=== PATIENT | male | born 1945 | race Caucasian/White ===

== ENCOUNTER 2017-01-28 10:19 | Outpatient (CLI) | payer MEDICARE ==
[2017-01-28 19:34] LABS: BASOPHILS # (AUTO) 0.1 10^3/uL (0.0-0.1); EOSINOPHILS # (AUTO) 0.2 10^3/uL (0.0-0.7); EOSINOPHILS % (AUTO) 3.7 %; HGB - HEMOGLOBIN 15.5 g/dL (14.0-18.0); LYMPHOCYTES # (AUTO) 1.2 10^3/uL (1.5-3.5); LYMPHOCYTES % (AUTO) 19.1 %; MEAN CORPUSCULAR HEMOGLOBIN 32.6 pg (27.0-31.0); MEAN CORPUSCULAR HGB CONC 33.6 g/dL (32.0-36.0); MEAN PLATELET VOLUME 11.7 fL (7.4-11.4); MONOCYTES # (AUTO) 0.5 10^3/uL (0.0-1.0); MONOCYTES % (AUTO) 8.7 %; NEUTROPHILS # (AUTO) 4.2 10^3/uL (1.5-6.6); NEUTROPHILS % (AUTO) 67.5 %; NUCLEATED RED BLOOD CELLS AUTO 0.1 /100WBC; RED BLOOD COUNT 4.74 10^6/uL (4.70-6.10); RED CELL DISTRIBUTION WIDTH 13.3 % (12.0-15.0); UNCORRECTED WHITE BLOOD COUNT 6.2 x10^3/uL; WHITE BLOOD COUNT 6.2 x10^3/uL (4.8-10.8)
[2017-01-28 19:39] LABS: ALBUMIN/GLOBULIN RATIO 1.5 (1.0-2.2); BILIRUBIN,TOTAL 1.1 mg/dL (0.2-1.0); CALCIUM 9.1 mg/dL (8.5-10.3); CREATININE 0.9 mg/dL (0.6-1.2); POTASSIUM 4.1 mmol/L (3.5-5.0)
[2017-01-28 20:08] LABS: H. PYLORI IGG ANTIBODY Negative (Negative); HPYLORI NEG QC Negative (Negative); HPYLORI POS QC POSITIVE (Positive)
== END 2017-01-28 10:20 | disposition home or self-care (01) ==
LOC: LAB.F 10:19
PROVIDERS: ATTEND Physician Assistant Medical
DX: R10.9 Unspecified abdominal pain (principal)
CPT/HCPCS: 36415; 80053; 82150; 83690; 85025; 87339

== ENCOUNTER 2017-01-29 20:19 | Outpatient (CLI) | payer MEDICARE | END 2017-01-29 20:20 | disposition home or self-care (01) | LOC: LAB.R 20:19 | PROVIDERS: ATTEND Family Medicine | DX: R10.9 Unspecified abdominal pain (principal) | CPT/HCPCS: 87493 ==

== ENCOUNTER 2018-03-01 10:39 | Outpatient (CLI) | payer MEDICARE ==
[2018-03-01 19:59] LABS: BASOPHILS # (AUTO) 0.1 10^3/uL (0.0-0.1); BASOPHILS % (AUTO) 1.2 %; EOSINOPHILS # (AUTO) 0.4 10^3/uL (0.0-0.7); EOSINOPHILS % (AUTO) 5.8 %; HGB - HEMOGLOBIN 16.6 g/dL (14.0-18.0); LYMPHOCYTES # (AUTO) 1.4 10^3/uL (1.5-3.5); LYMPHOCYTES % (AUTO) 22.3 %; MEAN CORPUSCULAR HEMOGLOBIN 33.1 pg (27.0-31.0); MEAN CORPUSCULAR HGB CONC 34.4 g/dL (32.0-36.0); MEAN CORPUSCULAR VOLUME 96.4 fL (80.0-94.0); MEAN PLATELET VOLUME 11.5 fL (7.4-11.4); MONOCYTES # (AUTO) 0.5 10^3/uL (0.0-1.0); MONOCYTES % (AUTO) 8.8 %; NEUTROPHILS # (AUTO) 3.9 10^3/uL (1.5-6.6); NEUTROPHILS % (AUTO) 61.9 %; PLT - PLATELET COUNT 168 10^3/uL (130-450); RED BLOOD COUNT 5.02 10^6/uL (4.70-6.10); RED CELL DISTRIBUTION WIDTH 13.5 % (12.0-15.0); WHITE BLOOD COUNT 6.2 x10^3/uL (4.8-10.8)
[2018-03-01 20:18] LABS: ALBUMIN/GLOBULIN RATIO 1.4 (1.0-2.2); ALKALINE PHOSPHATASE 48 IU/L (42-121); ALT ALANINE AMINOTRANSFERASE 25 IU/L (10-60); AST ASPARTATE AMINOTRANSFERASE 25 IU/L (10-42); BUN - BLOOD UREA NITROGEN 15 mg/dL (6-20); CARBON DIOXIDE - CO2 28 mmol/L (21-32); CHLORIDE 107 mmol/L (101-111); CHOL/HDL RATIO 3.7 (<5.0); CHOLESTEROL 196 mg/dL; CREATININE 0.7 mg/dL (0.6-1.2); GFR - MDRD 111 (>89); GLUCOSE 94 mg/dL (70-100); HDL CHOLESTEROL 53 mg/dL; LDL CHOLESTEROL,CALCULATED 129 mg/dL; LDL/HDL RATIO 2.4 (<3.6); SODIUM 142 mmol/L (135-145); TOTAL PROTEIN 6.8 g/dL (6.7-8.2); VLDL CHOLESTEROL 14 mg/dL
== END 2018-03-01 10:40 | disposition home or self-care (01) ==
LOC: LAB.F 10:39
PROVIDERS: ATTEND Family Medicine
DX: Z00.00 Encounter for general adult medical examination without abnormal findings (principal); Z12.5 Encounter for screening for malignant neoplasm of prostate; I10 Essential (primary) hypertension; E78.5 Hyperlipidemia, unspecified
CPT/HCPCS: 36415; 80053; 80061; 84443; 85025; G0103; 83721; 84153

== ENCOUNTER 2022-05-26 08:00 | Outpatient (CLI) | payer MEDICARE | END 2022-05-26 23:59 | disposition home or self-care (01) | LOC: LAB.N 08:00 | PROVIDERS: ATTEND Registered Nurse | DX: R93.0 Abnormal findings on diagnostic imaging of skull and head, not elsewhere classified (principal); R10.9 Unspecified abdominal pain; R19.5 Other fecal abnormalities | CPT/HCPCS: 87177 ==

== ENCOUNTER 2023-01-27 00:37 | Emergency (ER) | payer MEDICARE ==
[2023-01-27] MEDS ORDERED: diphenhydrAMINE INJ 50 MG/ML VIAL IVP STA (00:46)
[2023-01-27] MEDS ORDERED: predniSONE 20 MG TABLET PO STA (00:46)
[2023-01-27] MEDS ORDERED: FAMOTIDINE 20 MG/2 ML VIAL IVP STA (00:46)
[2023-01-27] MEDS ORDERED: EPINEPHrine 1 MG/ML AMP IM STA (00:46)
[2023-01-27] MEDS ORDERED: SODIUM CHLORIDE 0.9% 1,000 ML IV STA (00:47)
--- NOTE | 2023-01-27 00:50 | ED Physician Documentation ---
History of Present Illness - Stated complaint Stated Complaint: ALLERGIC REACTION - History obtained from History obtained from: Patient - Additonal information Additional information: Patient is a 77-year-old male presenting for evaluation of allergic reaction to a bee sting. Patient states he stepped on a bee around 11 PM. Shortly thereafter he had discomfort to his foot and has since developed tightness in his chest as well as a diffuse you to cardial rash. Denies a history of anaphylaxis has never required IM epinephrine before. Reports he feels like his breathing is okay but he does feel some tightness. Review of Systems Constitutional: denies: Fever Cardiac: denies: Chest pain / pressure Respiratory: denies: Dyspnea GI: denies: Abdominal Pain Skin: reports: Rash Neurologic: denies: Headache PD PAST MEDICAL HISTORY - Present Medications Home Medications: Ambulatory Orders Medication Instructions Recorded Confirmed EPINEPHrine [Epinephrine] 0.3 mg IJ ONCE PRN #2 each 01/27/23 predniSONE [Deltasone] 60 mg PO DAILY 4 Days #12 tablet 01/27/23 - Allergies Allergies/Adverse Reactions: Allergies Allergy/AdvReac Type Severity Reaction Status Date / Time No Known Drug Allergies Allergy Verified 01/27/23 00:57 PD ED PE NORMAL - General General: Alert and oriented X 3, No acute distress, Well developed/nourished - HEENT HEENT: Atraumatic, Moist mucous membranes, Pharynx benign, Other (No visible oral swelling) - Neck Neck: Supple, no meningeal sign - Cardiac Cardiac: RRR, No murmur - Respiratory Respiratory: No respiratory distress, Other (Mild expiratory wheeze) - Abdomen Abdomen: Soft, Non tender - Derm Derm: Other (Diffuse Urticaria) - Extremities Extremities: No edema - Neuro Neuro: Normal speech Results - Vitals Vitals: Vital Signs - 24 hr 01/27/23 01/27/23 00:48 01:30 Temperature 98.2 C H Heart Rate 72 55 L Respiratory 26 H 20 Rate Blood Pressure 115/92 H 153/93 H O2 Saturation 99 96 Oxygen O2 Source Room air PD Medical Decision Making - ED course Complexity details: re-evaluated patient, d/w patient, d/w family ED course: Patient is a 77-year-old male presenting for evaluation of a rash and allergic reaction after bee sting. Patient has a diffuse rash, mild wheezing, reports feeling some tightness in his throat. No signs of visible swelling in the airway. Vital signs are stable. Patient was given prednisone, Benadryl, IV fluids and IM epinephrine for anaphylactic reaction. He was observed for a period of 4 hours with no rebound and did not require repeated doses of epinephrine. Patient to be continued on prednisone for few days. He was also given a prescription for an EpiPen. He is counseled on indications for use of t he EpiPen 0205 - Doing significantly better. Rash has resolved. No longer with any breathing issues. Understands the need for continued observation after IM epi. 0447 - Still doing well. Rash resolved. Normal respirations and clear lung sounds. Departure - Departure Disposition: Home, Self Care Clinical Impression: Anaphylactic reaction to bee sting Condition: Stable Instructions: ED Bite Sting Insect Gen Allergic React, ED Anaphylaxis General Follow-Up: Sarah Beth Riggs ARNP [Primary Care Provider] - Prescriptions: predniSONE [Deltasone] 60 mg PO DAILY 4 Days #12 tablet EPINEPHrine [Epinephrine] 0.3 mg IJ ONCE PRN #2 each PRN Reason: Allergy Symptoms Comments: You were treated for a severe allergic reaction to a bee sting called anaphylaxis. We gave you several medications including a steroid and also a shot of epinephrine. I am sending prescriptions for the steroid medication as well as an EpiPen to [facility] in [place]. I would recommend follow-up with your primary care provider. Please complete the course of prednisone and use the EpiPen if needed. Return to the ER or call 911 if you develop any worsening symptoms such as difficulty breathing, throat tightness, swelling or any new concerns.
[2023-01-27 01:51] VITALS: BP 153/93; O2SAT 96
== END 2023-01-27 05:02 | disposition home or self-care (01) ==
LOC: ED 00:37
DX: T63.441A Toxic effect of venom of bees, accidental (unintentional), initial encounter (principal)
CPT/HCPCS: 36415; 96372; 96374; 99283; 99284; J1200; J7512

== ENCOUNTER 2023-03-16 11:36 | Outpatient (CLI) | payer MEDICARE ==
[2023-03-16 15:31] LABS: BASOPHILS # (AUTO) 0.1 10^3/uL (0.0-0.1); EOSINOPHILS # (AUTO) 0.5 10^3/uL (0.0-0.7); EOSINOPHILS % (AUTO) 7.7 %; HCT - HEMATOCRIT 44.3 % (42.0-52.0); HGB - HEMOGLOBIN 15.4 g/dL (14.0-18.0); LYMPHOCYTES # (AUTO) 1.2 10^3/uL (1.5-3.5); LYMPHOCYTES % (AUTO) 19.8 %; MEAN CORPUSCULAR HGB CONC 34.8 g/dL (32.0-36.0); MEAN CORPUSCULAR VOLUME 91.9 fL (80.0-94.0); MEAN PLATELET VOLUME 11.6 fL (7.4-11.4); MONOCYTES # (AUTO) 0.7 10^3/uL (0.0-1.0); MONOCYTES % (AUTO) 12.4 %; NEUTROPHILS # (AUTO) 3.4 10^3/uL (1.5-6.6); NEUTROPHILS % (AUTO) 58.1 %; PLT - PLATELET COUNT 196 10^3/uL (130-450); RED BLOOD COUNT 4.82 10^6/uL (4.70-6.10); RED CELL DISTRIBUTION WIDTH 12.8 % (12.0-15.0); WHITE BLOOD COUNT 5.9 x10^3/uL (4.8-10.8)
[2023-03-16 15:44] LABS: ALBUMIN 4.1 g/dL (3.2-5.5); ALBUMIN/GLOBULIN RATIO 1.5 (1.0-2.2); ALKALINE PHOSPHATASE 60 IU/L (42-121); ALT ALANINE AMINOTRANSFERASE 22 IU/L (10-60); AST ASPARTATE AMINOTRANSFERASE 24 IU/L (10-42); BUN - BLOOD UREA NITROGEN 11 mg/dL (6-20); CALCIUM 9.4 mg/dL (8.5-10.3); CARBON DIOXIDE - CO2 27 mmol/L (21-32); CHLORIDE 107 mmol/L (101-111); CHOL/HDL RATIO 4.1 (<5.0); CHOLESTEROL 202 mg/dL; CREATININE 0.8 mg/dL (0.6-1.3); GFR - MDRD 94 (>89); GLUCOSE 92 mg/dL (74-104); HDL CHOLESTEROL 49 mg/dL; LDL CHOLESTEROL,CALCULATED 134 mg/dL; LDL/HDL RATIO 2.7 (<3.6); POTASSIUM 4.1 mmol/L (3.5-4.5); SODIUM 141 mmol/L (135-145); TOTAL PROTEIN 6.9 g/dL (6.4-8.9); TRIGLYCERIDES 93 mg/dL (48-352); VLDL CHOLESTEROL 19 mg/dL
[2023-03-16 15:59] LABS: THYROID STIMULATING HORMONE 1.68 uIU/mL (0.34-5.60)
== END 2023-03-16 11:37 | disposition home or self-care (01) ==
LOC: LAB.S 11:36
PROVIDERS: ATTEND Registered Nurse
DX: Z13.228 Encounter for screening for other metabolic disorders (principal); Z13.220 Encounter for screening for lipoid disorders; Z13.29 Encounter for screening for other suspected endocrine disorder; Z13.0 Encounter for screening for diseases of the blood and blood-forming organs and certain disorders involving the immune mechanism
CPT/HCPCS: 36415; 80053; 80061; 83721; 84443; 85025

== ENCOUNTER 2023-09-20 16:55 | Outpatient (CLI) | payer MEDICARE | END 2023-09-20 23:59 | disposition critical access hospital (66) | LOC: EMS 16:55 | DX: I45.2 Bifascicular block (principal); R00.2 Palpitations; H53.8 Other visual disturbances | CPT/HCPCS: A0425; A0427 ==

== ENCOUNTER 2023-09-20 17:37 | Emergency (ER) | payer MEDICARE ==
--- NOTE | 2023-09-20 18:00 | ED Physician Documentation ---
PD HPI CHEST PAIN - Stated complaint Stated Complaint: PALPATATIONS - History obtained from History obtained from: Patient - Additional information Additional information: 78-year-old gentleman with history of hypertension presents for what he describes as "a heart event." For a long time now he has had brief episodes where he will get a shocklike sensation starting in his chest and then going throughout the body. It would last only an incident. He has never had any workup for it. Is been going on for several years though. Today he had that sensation twice and the thing that was different than normal was that his vision is better after the incident than it was before. No chest pain. There is never been any chest pain. No trouble breathing. PD PAST MEDICAL HISTORY - Present Medications Home Medications: Ambulatory Orders Medication Instructions Recorded Confirmed EPINEPHrine [Epinephrine] 0.3 mg IJ ONCE PRN #2 each 01/27/23 09/20/23 clonazePAM [Clonazepam] 0.5 mg PO TID PRN 09/20/23 09/20/23 - Allergies Allergies/Adverse Reactions: Allergies Allergy/AdvReac Type Severity Reaction Status Date / Time No Known Drug Allergies Allergy Verified 09/20/23 18:02 PD ED PE NORMAL - Vitals Vital signs reviewed: Yes - General General: Alert and oriented X 3, No acute distress - HEENT HEENT: PERRL, EOMI - Cardiac Cardiac: RRR, No murmur - Respiratory Respiratory: No respiratory distress, Clear bilaterally - Abdomen Abdomen: Non tender - Extremities Extremities: No edema, No calf tenderness / cord - Neuro Neuro: Alert and oriented X 3, Normal speech Results - Vitals Vitals: Vital Signs - 24 hr 09/20/23 09/20/23 09/20/23 17:55 18:06 19:28 Temperature 37.2 C Heart Rate 78 64 Respiratory 16 15 Rate Blood Pressure 169/84 H 171/90 H Blood Pressure 164/84 H [Left] O2 Saturation 100 97 Oxygen O2 Source Room air - EKG (time done) 1800 EKG releavant findings:: EKG personally interpreted by author of this note. Relevant findings are: Rate: Rate (enter#) (67) Rhythm: NSR [place]: Normal Intervals: RBBB QRS: Normal Ischemia: Normal ST segments - Labs Labs: Laboratory Tests 09/20/23 09/20/23 09/20/23 18:03 18:03 18:03 WBC 8.6 RBC 4.57 L Hgb 14.9 Hct 42.7 MCV 93.4 MCH 32.6 H MCHC 34.9 RDW 12.3 Plt Count 204 MPV 10.2 Neut # (Auto) 6.1 Lymph # (Auto) 1.4 L [place] # (Auto) 0.8 Eos # (Auto) 0.2 Baso # (Auto) 0.0 Absolute Nucleated RBC 0.00 Nucleated RBC % 0.0 Sodium 139 Potassium 3.7 Chloride 102 Carbon Dioxide 32 Anion Gap 5.0 L BUN 20 Creatinine 1.1 Estimated GFR (MDRD) 65 L Glucose 94 Calcium 9.8 Magnesium 1.9 Total Bilirubin 0.8 AST 26 ALT 30 Alkaline Phosphatase 44 Troponin I High Sens 8.8 Total Protein 7.2 Albumin 4.3 Globulin 2.9 Albumin/Globulin Ratio 1.5 PD Medical Decision Making - ED course ED course: 78-year-old gentleman has episodic symptoms of an electric shock sensation first in the chest and then throughout the body. This has been going on for quite some time without specific diagnosis. Today he had 2 episodes in the day which is atypical and then felt like his vision was better after the second episode which is also atypical. ED workup was negative with no ectopy on the monitor, unremarkable CBC, CMP, EKG, and troponin. Follow-up for prolonged cardiac monitoring was advised. Departure - Departure Disposition: 01 Home, Self Care Clinical Impression: Palpitations Condition: Good Record reviewed to determine appropriate education?: Yes Instructions: ED Palpitations Comments: No clear cause was found for your symptoms tonight and they do not sound dangerous per se. That said I think the appropriate neck step would be for you to follow-up with your primary care physician for consideration of a heart monitor such as a CAM patch or Zio patch. Return for new or worsening symptoms. Forms: PCP List Discharge Date/Time: 09/20/23 19:43
[2023-09-20 18:10] LABS: BASOPHILS % (AUTO) 0.5 %; EOSINOPHILS # (AUTO) 0.2 10^3/uL (0.0-0.7); EOSINOPHILS % (AUTO) 2.7 %; HCT - HEMATOCRIT 42.7 % (42.0-52.0); HGB - HEMOGLOBIN 14.9 g/dL (14.0-18.0); LYMPHOCYTES # (AUTO) 1.4 10^3/uL (1.5-3.5); LYMPHOCYTES % (AUTO) 16.4 %; MEAN CORPUSCULAR HEMOGLOBIN 32.6 pg (27.0-31.0); MEAN CORPUSCULAR HGB CONC 34.9 g/dL (32.0-36.0); MEAN CORPUSCULAR VOLUME 93.4 fL (80.0-94.0); MEAN PLATELET VOLUME 10.2 fL (7.4-11.4); MONOCYTES # (AUTO) 0.8 10^3/uL (0.0-1.0); MONOCYTES % (AUTO) 9.5 %; NEUTROPHILS # (AUTO) 6.1 10^3/uL (1.5-6.6); NEUTROPHILS % (AUTO) 70.1 %; PLT - PLATELET COUNT 204 10^3/uL (130-450); RED BLOOD COUNT 4.57 10^6/uL (4.70-6.10); RED CELL DISTRIBUTION WIDTH 12.3 % (12.0-15.0); WHITE BLOOD COUNT 8.6 x10^3/uL (4.8-10.8)
[2023-09-20 19:07] LABS: ALBUMIN 4.3 g/dL (3.2-5.5); ALBUMIN/GLOBULIN RATIO 1.5 (1.0-2.2); BILIRUBIN,TOTAL 0.8 mg/dL (0.2-1.0); CALCIUM 9.8 mg/dL (8.5-10.3); CREATININE 1.1 mg/dL (0.6-1.3); MAGNESIUM 1.9 mg/dL (1.7-2.3); POTASSIUM 3.7 mmol/L (3.5-4.5); TOTAL PROTEIN 7.2 g/dL (6.4-8.9)
[2023-09-20 19:31] VITALS: BP 171/90; O2SAT 97
== END 2023-09-20 19:43 | disposition home or self-care (01) ==
LOC: EDUNIT# → ED 17:37
DX: R00.2 Palpitations (principal)
CPT/HCPCS: 36415; 80053; 83735; 84484; 85025; 93005; 99283; 99284

== ENCOUNTER 2023-10-28 17:46 | Emergency (ER) | payer MEDICARE ==
--- NOTE | 2023-10-28 18:31 | ED Physician Documentation ---
History of Present Illness - Stated complaint Stated Complaint: HEAD PRESSURE - Chief complaint Chief Complaint: Heent - Additonal information Additional information: 78-year-old male here to the emergency department for concerns of adhesive toxicity. Patient had a heart monitor about a week ago and is worried that the adhesive is causing systemic toxicity. Patient reports that he has been experiencing head pressure intermittently he he was worried that maybe it was due to dehydration He has recently increased his consumption of water and says that some days he feels like maybe the head pressure is getting better but other days he starts to notice that again. He said it happened about 3-4 times within the last week. No focal neurological deficits no head pain no nausea or vomiting no signs or symptoms of infection. PD PAST MEDICAL HISTORY - Past Medical History Past Medical History: Yes Cardiovascular: Hypertension Respiratory: None Neuro: None Endocrine/Autoimmune: None GI: None : None HEENT: None Psych: Anxiety Musculoskeletal: None Derm: None - Past Surgical History Past Surgical History: No - Present Medications Home Medications: Ambulatory Orders Medication Instructions Recorded Confirmed EPINEPHrine [Epinephrine] 0.3 mg IJ ONCE PRN #2 each 01/27/23 10/14/23 Acetaminophen [Tylenol] 500 mg PO Q6HR 10/28/23 methylPREDNISolone [Medrol Dose 4 mg PO DAILY 10/28/23 Pack] - Allergies Allergies/Adverse Reactions: Allergies Allergy/AdvReac Type Severity Reaction Status Date / Time adhesive Allergy Rash Verified 10/28/23 18:14 - Social History Does the pt smoke?: No Smoking Status: Never smoker Does the pt drink ETOH?: Yes Does the pt have substance abuse?: No - Immunizations Immunizations are current?: No - POLST Patient has POLST: No PD ED PE NORMAL - Vitals Vital signs reviewed: Yes - General General: Alert and oriented X 3, No acute distress, Well developed/nourished - HEENT HEENT: Atraumatic, PERRL - Neck Neck: Supple, no meningeal sign - Derm Derm: Normal color, Warm and dry, No rash - Neuro Neuro: Alert and oriented X 3, 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 Patient has a difficult time trying to explain his symptoms but he has had about 6-7 episodes of head pressure. Currently denies any head pressure pain no focal neurological deficits making me concerned for possible stroke patient denies any confusion or aphasia during his head pressure episodes. Patient told to follow-up with his primary care provider outpatient. He is given some Zyrtec here in the ER to see if this would help maybe his head pressure is due to some seasonal allergies that he is experiencing. He is told he can buy this medication [id number] if he does find relief from it and told to follow-up with primary care provider outpatient. Patient was reassured that I do not believe that he is experiencing any systemic toxic symptoms due to the adhesive. Departure - Departure Disposition: 01 Home, Self Care Clinical Impression: Pressure in head Instructions: Headaches Sinus Comments: You for trusting us with your care. As we discussed I do not believe that you are experiencing systemic symptoms of adhesive toxicity. I am unsure what is causing your head pressure I would recommend following up with your primary care provider for any further outpatient imaging or labs. We have given you Zyrtec here in the emergency department to see if this helps with the head pressure that you are experiencing if this does seem to alleviate your symptoms you can excelsior picker this medication [id number] at any pharmacy. Please come back to the emergency department if you are experiencing weakness on one side your body, difficulty thinking or speaking, or any other concerning symptoms. Forms: PCP List Discharge Date/Time: 10/28/23 19:18
[2023-10-28] MEDS: CETIRIZINE 10 MG TABLET PO STA (19:00)
[2023-10-28 19:23] VITALS: BP 168/104; O2SAT 97
== END 2023-10-28 19:18 | disposition home or self-care (01) ==
LOC: ED 17:46
DX: R51.9 Headache, unspecified (principal); I45.10 Unspecified right bundle-branch block; I25.2 Old myocardial infarction; I10 Essential (primary) hypertension
CPT/HCPCS: 93005; 99283; A9270